=== PATIENT | male | born 1995 | race Caucasian/White ===

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

== ENCOUNTER 2018-03-04 06:50 | Emergency (ER) | END 2018-03-04 08:21 | disposition home or self-care (01) ==

== ENCOUNTER 2018-11-14 16:16 | Emergency (ER) | payer OTHER ==
[~2018-11-14] VITALS: Wt 77.3 kg
[~2018-11-14 16:16] MED LIST changes: -ALBU8.5H3 INH; +ALBU8.5H8 INH; -AMO500 PO; +AMOX500C2 PO; +CYCL10TA7 PO; -FAMO-18 PO; +FAMO-96 PO; +IBUP800T48 PO
--- NOTE | 2018-11-14 16:35 | ERD ---
ER Documentation Chief Complaint Chief Complaint PT BIB AMBULANCE WITH C/O ETOH INTOXICATION HPI The patient is a 23-year-old male, presenting to the ER from home because of possible alcohol intoxication. According to EMS, he fell. He is unable to provide any history, the history is obtained from the EMS Past medical/surgical history/social history/review of system: Unable to obtain due to his condition Medications Home Meds Discontinued Reported Medications Albuterol Sulfate* (Proair HFA*) 8.5 Gm Hfa.aer.ad, 2 PUFF INH Q4H PRN for WHEEZING AND SOB, INH 06/14/14 Discontinued Scripts Ibuprofen* (Motrin*) 800 Mg Tab, 800 MG PO Q6H PRN for PAIN AND OR ELEVATED TEMP, #30 TAB Prov:PASILABANJOVON F 03/04/18 Cyclobenzaprine Hcl* (Cyclobenzaprine Hcl*) 10 Mg Tablet, 10 MG PO Q12 PRN for MUSCLE SPASMS, #15 TAB Prov:JOVON GEORGE 03/04/18 Famotidine* (Pepcid*) 20 Mg Tablet, 20 MG PO DAILY, #20 TAB Prov:JAMES TOMLNISON-C 07/12/16 Loratadine* (Claritin*) 10 Mg Tablet, 10 MG PO DAILY, #20 TAB Prov:JAMES TOMLINSON-C 07/12/16 Famotidine* (Pepcid*) 20 Mg Tablet, 20 MG PO DAILY for 14 Days, TAB Prov:JAMES TOMLINSON-C 06/30/16 Loratadine* (Claritin*) 10 Mg Tablet, 10 MG PO DAILY, #30 TAB Prov:JAMES TOMLINSON-C 06/30/16 Amoxicillin* (Amoxicillin*) 500 Mg Cap, 500 MG PO TID for 7 Days, CAP Prov:JOYA MOELLER 05/18/15 Neomycin/Polymyxin/Hydrocort* (Cortisporin* Otic) 10 Ml Susp, 4 DROP RIGHT EAR QID for 7 Days, EA Prov:JOYA MOELLER 05/18/15 Ibuprofen* (Motrin*) 600 Mg Tab, 600 MG PO Q6H PRN for PAIN AND OR ELEVATED TEMP, #20 Prov:JOYA MOELLER 05/18/15 Allergies Allergies: Coded Allergies: shrimp (Unverified Allergy, Unknown, 11/14/18) No Known Allergy (Unverified , 11/14/18) PMhx/Soc History of Surgery: No Anesthesia Reaction: No Hx Neurological Disorder: No Hx Respiratory Disorders: Yes (ASTHMA) Hx Cardiac Disorders: No Hx Psychiatric Problems: No Hx Miscellaneous Medical Probl: No Hx Alcohol Use: No Hx Substance Use: Yes (weed) Hx Tobacco Use: No Physical Exam Vitals Vital Signs Date Temp Pulse Resp B/P (MAP) Pulse Ox O2 O2 Flow FiO2 Time Delivery Rate 11/14/18 98.6 72 16 121/68 98 Room Air 20:55 (85) 11/14/18 76 16 98/60 (73) 98 Room Air 18:00 11/14/18 99.0 97 18 150/95 100 16:27 (113) Physical Exam Const: No acute distress. Head: Atraumatic. Eyes: Normal Conjunctiva. ENT: Normal External Ears, Nose and Mouth. Neck: Full range of motion. No meningismus. Resp: Clear to auscultation bilaterally. Cardio: Regular rate and rhythm. Abd: Soft, non distended, normal bowel sounds, non tender. Skin: No petechiae or rashes. Back: No midline or flank tenderness. Ext: No cyanosis, or edema. Neur: Awake. Limited due to his condition Psych: Intoxicated Result Diagram: 11/14/18 1633 11/14/18 1633 Results 24 hrs Laboratory Tests Test 11/14/18 16:33 11/14/18 16:47 11/14/18 16:54 11/14/18 17:10 White Blood Count 13.4 10^3/ul Red Blood Count 4.88 10^6/ul Hemoglobin 15.1 g/dl Hematocrit 44.5 % Mean Corpuscular 91.2 fl Volume Mean Corpuscular 30.9 pg Hemoglobin Mean Corpuscular 33.9 g/dl Hemoglobin Concent Red Cell 11.9 % Distribution Width Platelet Count 355 10^3/UL Mean Platelet 10.2 fl Volume Immature 0.400 % Granulocytes % Neutrophils % 63.3 % Lymphocytes % 30.8 % Monocytes % 4.0 % Eosinophils % 1.1 % Basophils % 0.4 % Nucleated Red Blood 0.0 /100WBC Cells % Immature 0.060 10^3/ul Granulocytes # Neutrophils # 8.5 10^3/ul Lymphocytes # 4.1 10^3/ul Monocytes # 0.5 10^3/ul Eosinophils # 0.2 10^3/ul Basophils # 0.1 10^3/ul Nucleated Red Blood 0.0 10^3/ul Cells # Sodium Level 147 mmol/L Potassium Level 4.1 mmol/L Chloride Level 110 mmol/L Carbon Dioxide 24 mmol/L Level Anion Gap 13 Blood Urea Nitrogen 7 mg/dl Creatinine 0.79 mg/dl Est Glomerular > 60 mL/min Filtrat Rate mL/min Glucose Level 94 mg/dl Calcium Level 9.4 mg/dl Total Bilirubin 0.6 mg/dl Direct Bilirubin 0.00 mg/dl Indirect Bilirubin 0.6 mg/dl Aspartate Amino 32 IU/L Transf (AST/SGOT) Alanine 32 IU/L Aminotransferase (A LT/SGPT) Alkaline 88 IU/L Phosphatase Total Protein 7.6 g/dl Albumin 4.5 g/dl Globulin 3.10 g/dl Albumin/Globulin 1.45 Ratio Salicylates Level < 1.0 mg/dl Acetaminophen Level < 10.0 ug/ml Ethyl Alcohol Level 218.0 mg/dl Urine Opiates NEGATIVE Screen Urine Barbiturates NEGATIVE Urine Amphetamines NEGATIVE Screen Urine NEGATIVE Benzodiazepines Screen Urine Cocaine NEGATIVE Screen Urine Cannabinoids POSITIVE Bedside Glucose 76 mg/dL Urine Color COLORLESS Urine Clarity CLEAR Urine pH 6.0 Urine Specific 1.002 [place] Urine Ketones NEGATIVE mg/dL Urine Nitrite NEGATIVE mg/dL Urine Bilirubin NEGATIVE mg/dL Urine Urobilinogen NEGATIVE mg/dL Urine Leukocyte NEGATIVE Nito/ul Esterase Urine Microscopic 0 /HPF RBC Urine Microscopic 0 /HPF WBC Urine Hemoglobin 1+ mg/dL Urine Glucose NEGATIVE mg/dL Urine Total Protein NEGATIVE mg/dl Procedures/[place] [id number] Radiology Main Line: [phone] DIAGNOSTIC IMAGING REPORT Patient: BIENVENIDO FORTE : 1995 Age: 23 Sex: M MR #: [id number] DOS: 11/14/18 1651 Ordering MD: SIMA OSORIO MD Location: E/R Room/Bed: PROCEDURE: CT Brain without contrast. CLINICAL INDICATION: Status post fall TECHNIQUE: A CT of the brain was performed on a GE LightSpeed 64-slice CT scanner utilizing axial imaging from the skull base through the vertex without IV contrast. Multiplanar reformatted images were made. Images were reviewed on a PACS workstation. The CTDIvol is 39.64 mGy and the DLP is 634.23 mGycm. DICOM images are available. One or more of the following dose reduction techniques were utilized: 1.) Automated exposure control 2.) Adjustment of the mA +/- kV according to patient's size 3.) Use of iterative reconstruction technique. COMPARISON: None FINDINGS: There is no intracranial hemorrhage, mass effect, or midline shift. No extra- axial fluid collection is seen. The ventricles and sulci are normal in size and configuration. The density of the brain is normal, and the lawler white matter differentiation appears well-preserved. The visualized paranasal sinuses and osseous structures are grossly unremarkable. There is mild extracranial soft tissue swelling overlying left frontal bone. IMPRESSION: 1. No evidence of acute intracranial pathology. 2. Mild extracranial soft tissue swelling overlying left frontal bone. RPTAT: PP Physician Lois Date Time Electronically viewed and signed by Physician Lois on 11/14/2018 18:23 rV/ CC: SIMA OSORIO MD [id number] [place] [id number] Radiology Main Line: [phone] DIAGNOSTIC IMAGING REPORT Patient: BIENVENIDO FORTE : 1995 Age: 23 Sex: M MR #: [id number] DOS: 11/14/18 1651 Ordering MD: SIMA OSORIO MD Location: E/R Room/Bed: PROCEDURE: CT Cervical Spine. CLINICAL INDICATION: Status post fall TECHNIQUE: A CT of the cervical spine was performed on a GE [employer] VCT 64-slice CT scanner utilizing thin section axial images from the skull base through the thoracic inlet. Sagittal and coronal reformatted images were made. The CTDIvol is 22.29 mGy and the DLP is 562.51 mGycm. DICOM images are available. One or more of the following dose reduction techniques were utilized: 1.) Automated exposure control 2.) Adjustment of the mA +/- kV according to patient's size 3.) Use of iterative reconstruction technique. COMPARISON: None. FINDINGS: There is straightening of the cervical spine. There is a questionable mild asymmetric articulation on the left C6-C7 facet joint, may be positional. Otherwise no vertebral body subluxation is seen. No fractures are evident. The posterior elements are normally aligned. The surrounding soft tissues are normal in appearance. The intervertebral discs are normal in height. No si gnificant disk bulge or protrusion is seen. The central canal and foramina are adequately patent at all levels. IMPRESSION: 1. Questionable mild asymmetric articulation on the left C6-C7 facet joint, which may be positional. Consider further evaluation with MRI if patient is symptomatic. 2. Straightening of the lordosis of the cervical spine also likely positional versus muscle spasm. 3. Otherwise no acute fracture. Findings discussed with Dr. Vasquez at the 06:50 p.m. on 11/14/2018. RPTAT: PP Physician Lois Date Time Electronically viewed and signed by Physician Lois on 11/14/2018 18:55 rV/ CC: SIMA OSORIO MD [id number] [place] [address] Radiology Main Line: [phone] DIAGNOSTIC IMAGING REPORT Patient: BIENVENIDO FORTE : 1995 Age: 23 Sex: M MR #: [id number] DOS: 11/14/18 1659 Ordering MD: SIMA OSORIO MD Location: E/R Room/Bed: PROCEDURE: XR Chest. CLINICAL INDICATION: Chest pain. Trauma. TECHNIQUE: Single portable view of the chest was obtained. COMPARISON: None. FINDINGS: Cardiac/vascular structures: Normal cardiomediastinal silhouette. Pulmonary: Lungs are clear. No pleural effusion. No evidence of pneumothorax. Osseous structures: Normal Soft tissues: Normal IMPRESSION: No acute cardiopulmonary disease. RPTAT:AAJJ Jamin Quintero Physician Date Time Electronically viewed and signed by Jamin Quintero Physician on 11/14/2018 18:14 MH/ CC: SIMA OSORIO MD [id number] MEDICAL MAKING DECISION: The patient is a 23-year-old male, presenting with acute alcohol abuse and marijuana abuse. He was observed in the ER for many hours, he is now awake, alert, able to ambulate with any difficulty independently. He has no cervical tenderness. I do not suspect any acute cervical injury. He denies suicidal/homicidal ideation, he is here with his uncle who can pick him up. The differential diagnoses considered include but are not limited to substance abuse, anxiety disorder, depression Departure Diagnosis: Primary Impression: Alcohol abuse Additional Impression: Cannabis abuse Condition: Stable Comments I discussed the findings with the patient. I advised the patient to follow-up with the primary physician in about 2-3 days, sooner if needed and return if any concern. Disclaimer: Inadvertent spelling and grammatical errors are likely due to EHR/dictation software use and do not reflect on the overall quality of patient care. Also, please note that the electronic time recorded on this note does not necessarily reflect the actual time of the patient encounter. The patient's blood pressure was elevated (>120/80) but appears stable without evidence of hypertension emergency or urgency. The patient was counseled about the risks of hypertension and urged to pursue outpatient monitoring and therapy within a week with their primary care physician. SIMA OSORIO MD November 14, 2018 16:35
[2018-11-14 20:55] VITALS: BP 121/68; PULSE 72; RESP 16
== END 2018-11-14 20:56 | disposition home or self-care (01) ==
LOC: E/R 16:16
DX: F10.10 Alcohol abuse, uncomplicated (principal); F12.10 Cannabis abuse, uncomplicated; R40.2132 Coma scale, eyes open, to sound, at arrival to emergency department; R40.2242 Coma scale, best verbal response, confused conversation, at arrival to emergency department; R40.2362 Coma scale, best motor response, obeys commands, at arrival to emergency department; J45.909 Unspecified asthma, uncomplicated; R93.0 Abnormal findings on diagnostic imaging of skull and head, not elsewhere classified
CPT/HCPCS: 36415; 70450; 71045; 72125; 80053; 80307; 81001; 82962; 85025; Z7502